=== PATIENT | female | born 1975 | race Hispanic/Latino ===

== ENCOUNTER 2021-07-22 15:33 | Outpatient (CLI) | payer BC | END 2021-07-22 15:34 | disposition home or self-care (01) | LOC: CSHMAMMO 15:33 | PROVIDERS: ATTEND Family Medicine | DX: Z12.31 Encounter for screening mammogram for malignant neoplasm of breast (principal); N63.11 Unspecified lump in the right breast, upper outer quadrant | CPT/HCPCS: 77063; 77067 ==

== ENCOUNTER 2021-07-26 13:38 | Outpatient (CLI) | payer BC | END 2021-07-26 13:39 | disposition home or self-care (01) | LOC: CSHMAMMO 13:38 | PROVIDERS: ATTEND Family Medicine | DX: N63.10 Unspecified lump in the right breast, unspecified quadrant (principal) | CPT/HCPCS: G0279 ==

== ENCOUNTER 2021-09-27 07:50 | Outpatient (CLI) | payer BC ==
[2021-09-27] MEDS ORDERED: Iopamidol 300 61% 100 ML VIAL FS ONE (14:36)
== END 2021-09-27 07:51 | disposition home or self-care (01) ==
LOC: CSHCT 07:50
PROVIDERS: ATTEND Physician Assistant Medical
DX: R14.0 Abdominal distension (gaseous) (principal); K59.00 Constipation, unspecified; R10.12 Left upper quadrant pain; R10.32 Left lower quadrant pain; R10.13 Epigastric pain; N28.9 Disorder of kidney and ureter, unspecified
CPT/HCPCS: 74177; Q9967